=== PATIENT | male | born 1965 | race Caucasian/White ===

== ENCOUNTER 2020-09-27 21:32 | Emergency (ER) | payer OTHER ==
[~2020-09-27] VITALS: Ht 175.3 cm; Wt 90.7 kg
--- NOTE | 2020-09-27 21:32 | NUR ---
PT ANTOINE ALS. TAKEN TO BED 8
[2020-09-27 21:37] VITALS: BP 119/75
[2020-09-27] MEDS ORDERED: ONDANSETRON 4 MG/2 ML VIAL ONE (21:57)
--- NOTE | 2020-09-27 21:58 | NUR ---
55 y/o male BIBA c/o near syncope episode. Per pt he was working on the computer and started feeling "off" pt was able to ask daughter and to help him to the floor. Pt denies any LOC , states once he got down to the floor he rolled to his side and had x 2 episodes of vomit. Pt denies any pain and states his called 911 because he had a moment of not responding appropriately to her questions. Pt was provided Zofran ODT on site. Pt currently A/O x 4 w/ slight nausea , generalized weakness and shakiness. PERRLA. + BL strong bulb packer strength. Pt calm , responding appropriately , speech is clear. Pt resting in bed, locked and in lowest position, HOB elevated, side rail x 2 for pt safety. VSS. No acute distress noted. ERMD made aware of pt status. pmh: kidney stones NKA
--- NOTE | 2020-09-27 21:59 | NUR ---
ERMD at bedside for medical evaluation.
[2020-09-27] MEDS ORDERED: ONDANSETRON 4 MG/2 ML VIAL IVP ONE (22:00)
[2020-09-27] MEDS ORDERED: NACL 0.9% 1,000 ML IV ONE (22:00)
--- NOTE | 2020-09-27 22:00 | NUR ---
Per Dr. Raman administer 4 mg IVP Zofran , 1L bolus of NS and provide pt water to swish and spit out.
--- NOTE | 2020-09-27 22:05 | NUR ---
Blood labs collected and handed to Nathan Heard tech.
--- NOTE | 2020-09-27 22:09 | NUR ---
EMT at bedside for EKG
[2020-09-27 22:13] LABS: BASOPHILS % (AUTO) 0.5 % (0.0-2.0); EOSINOPHILS # (AUTO) 0.1 K/uL (0-0.4); EOSINOPHILS % (AUTO) 1.7 % (0.0-4.0); HEMATOCRIT 42.3 % (36-52); HEMOGLOBIN 14.3 g/dL (12.0-18.0); LYMPHOCYTES # (AUTO) 1.6 K/uL (2.0-11.5); LYMPHOCYTES % (AUTO) 26.5 % (20.5-51.1); MEAN CORPUSCULAR HEMOGLOBIN 32 pg (27-31); MEAN CORPUSCULAR HGB CONC 34 g/dL (33-37); MONOCYTES # (AUTO) 0.7 K/uL (0.8-1.0); MONOCYTES % (AUTO) 11.2 % (1.7-9.3); NEUTROPHILS # (AUTO) 3.7 K/uL (1.8-7.7); NEUTROPHILS % (AUTO) 60.1 % (42.2-75.2); PLATELET COUNT (AUTO) 198 K/uL (140-450); RED BLOOD CELL COUNT(AUTO) 4.46 MIL/uL (4.20-6.10); RED CELL DISTRIBUTION WIDTH 12.5 % (11.6-13.7); WHITE BLOOD COUNT (AUTO) 6.2 K/uL (4.8-10.8)
--- NOTE | 2020-09-27 22:24 | NUR ---
Per pt authorization spoke w/ daughter Pita - udpated her on pt status. Per Pita , if father is going to be discharged or change in condition contact her at [phone].
[2020-09-27 22:35] LABS: ALBUMIN 3.7 g/dL (3.4-5.0); ANION GAP 11.7 (8-16); CARBON DIOXIDE 25.6 mmol/L (21-32); POTASSIUM 3.3 mmol/L (3.5-5.1); THYROID STIMULATING HORMONE 2.8 uIU/mL (0.34-3.74); TOTAL BILIRUBIN 0.6 mg/dL (0.0-1.0)
--- NOTE | 2020-09-27 22:37 | NUR ---
Pt sleeping in bed, locked and in lowest position, HOB elevated, side rail x 2 for pt safety. Pt arousable to verbal stimulation, visible rise and fall of chest. Oxygen level 92%. IVF NS running in rt ac. No acute distress noted.
--- NOTE | 2020-09-27 23:23 | NUR ---
ERMD at bedside.
--- NOTE | 2020-09-27 23:28 | NUR ---
Spoke w/ daughter Pita for pt p/u. Per daughter she is on her way now.
--- NOTE | 2020-09-27 23:30 | NUR ---
IV removed, catheter intact and site benign. Applied folded 4x4 gauze and tape to stop bleeding.
[2020-09-27 23:36] VITALS: BP 101/58
--- NOTE | 2020-09-27 23:36 | NUR ---
Patient discharged with v/s stable. Written and verbal after care instructions given and explained. Patient verbalized understanding. Ambulatory with steady gait. All questions addressed prior to discharge. Advised to follow up with PMD.
== END 2020-09-27 23:36 | disposition home or self-care (01) ==
LOC: MED 21:32
DX: R55 Syncope and collapse (principal); Z87.442 Personal history of urinary calculi
CPT/HCPCS: 36415; 80053; 84443; 84484; 85025; 93005; 96361; 96374; 99284; J2405; J7030